=== PATIENT | male | born 2000 ===

== ENCOUNTER 2023-05-01 07:48 | Day surgery (SDC) | payer OTHER ==
[2023-04-29 11:05] VITALS: BMI 22.3
[2023-05-01] MEDS ORDERED: PROPOFOL 20 ML ONE (10:22)
[2023-05-01] MEDS ORDERED: Lidocaine 1% PF 5 ML VIAL ONE (10:22)
[2023-05-01] MEDS ORDERED: NEOSTIGMINE 3 MG/3 ML SYR 3 MG/3 ML SYRINGE ONE (10:28)
[2023-05-01] MEDS ORDERED: Glycopyrrolate 0.2 MG/ML 5 ML SYRINGE ONE (10:28)
[2023-05-01] MEDS ORDERED: EPINEPHrine 1 MG/ML VIAL ONE (10:46)
[2023-05-01] MEDS ORDERED: Bupivacaine 0.25% HCL 30 ML VIAL ONE (10:46)
[2023-05-01 11:15] LABS: Anion Gap 9 mmol/L (10-20); BUN (Urea Nitrogen) 13 mg/dL (8.9-20.6); Calc. Creatinine Clearance 107 mL/min (70-130); Calcium 9.2 mg/dL (7.8-10.44); Carbon Dioxide 27 mmol/L (22-29); Chloride 105 mmol/L (98-107); Estimated GFR 95; Glucose 93 mg/dL (70-105); Sodium 137 mmol/L (136-145)
[2023-05-01] MEDS ORDERED: Fentanyl 250 MCG/5 ML VIAL ONE (12:38)
[2023-05-01] MEDS ORDERED: Midazolam HCl 2 mg/2 ml Vial ONE (12:43)
[2023-05-01] MEDS ORDERED: CEFAZOLIN 1 GM VIAL ONE (12:50)
[2023-05-01] MEDS ORDERED: Dexamethasone 20 MG/5 ML VIAL ONE (12:54)
[2023-05-01] MEDS ORDERED: Ondansetron PF 4 MG/2 ML Vial ONE (13:06)
== END 2023-05-01 15:15 | disposition home or self-care (01) ==
LOC: SDC 07:48
PROVIDERS: ATTEND Surgery
PROC: 0WUF0JZ Supplement Abdominal Wall with Synthetic Substitute, Open Approach (ICD-10-PCS; principal; 2023-05-01)
DX: K42.9 Umbilical hernia without obstruction or gangrene (principal)
CPT/HCPCS: 36415; 80048; 93005; 93010; J0171; J0690; J1100; J2250; J2405; J2704; J3010; S0020